=== PATIENT | male | born 1955 | race Caucasian/White ===

== ENCOUNTER 2017-05-28 14:10 | Emergency (ER) | payer BC ==
[2017-05-28] MEDS ORDERED: Aspirin Low Dose CHEW TAB* 81 MG PO ONE ×2 (14:28→14:29)
[2017-05-28 14:47] LABS: Hematocrit 44 % (42-52); Hemoglobin 15.4 g/dl (14.0-18.0); Mean Corpuscular HGB Conc 35 g/dl (31-36); Mean Corpuscular Hemoglobin 33 pg (27-31); Mean Corpuscular Volume 95 fL (80-94); Mean Platelet Volume 8 um3 (7.4-10.4); Red Blood Count 4.61 10^6/ul (4.0-5.4); Red Cell Distribution Width 13 % (10.5-15); White Blood Count 11.1 10^3/ul (3.5-10.8)
--- NOTE | 2017-05-28 14:49 | RAD ---
Indication: Palpitations. Atrial fibrillation. Comparison: April 27, 2015 Technique: Upright AP 1435 hours Report: Clear lungs and pleural spaces. Negative for pneumothorax. The heart, pulmonary vasculature, and mediastinal contours are unremarkable. Unremarkable osseous structures and soft tissue contours. IMPRESSION: No evidence for acute intrathoracic disease.
[2017-05-28 15:04] LABS: Albumin 4.3 g/dL (3.2-5.2); BUN/Creatinine Ratio 20.9 (8-20); Calcium 9.5 mg/dL (8.6-10.3); EGFR African American 86.9 (>60); EGFR Non-African American 67.6 (>60); Globulin 2.9 g/dL (2-4); Total Bilirubin 0.6 mg/dL (0.2-1.0); Total Protein 7.2 g/dL (6.4-8.9)
[2017-05-28 15:29] LABS: TSH (Thyroid Stimulating Horm) 0.75 mcIU/mL (0.34-5.60)
[2017-05-28 18:11] VITALS: BP 150/78
--- NOTE | 2017-05-29 09:08 | ED ---
Zayda Ward Alfonso, scribed for Fabián Warren MD on 05/28/17 at 1519 . Palpitations / Dysrhythmia - HPI Summary HPI Summary: This patient is a 61 year old M presenting to [facility] with a chief complaint of palpitations since a few days ago. The CC is described as fluttering and skipping. The palpitations are intermittent episodes lasting for up to an hour. Pt rates the pain 0/10 in severity. Symptoms aggravated and alleviated by nothing. Pt denies CP, and calf swelling. PMHx of HTN. - History of Current Complaint Chief Complaint: EDChestWallPain Time Seen by Provider: 05/28/17 14:28 Hx Obtained From: Patient Onset/Duration: Sudden Onset, Lasting Days - a few Timing: Intermittent Episodes Lasting: - up to an hour Severity Initially: Mild Severity Currently: Mild Character: Fluttering, Skipped Beats Aggravating: Nothing Alleviating: Nothing - Allergy/Home Medications Allergies/Adverse Reactions: Allergies Allergy/AdvReac Type Severity Reaction Status Date / Time No Known Allergies Allergy Verified 10/24/15 12:12 Home Medications: Home Medications Ledipasvir/Sofosbuvir 90/(NF) [Harvoni 90/400 (NF)] 1 tab PO DAILY 05/28/17 [ History Confirmed 05/28/17] Multivitamins/Minerals TAB* [Theragran/minerals TAB*] 1 tab PO DAILY 05/28/17 [ History Confirmed 05/28/17] PMH/Surg Hx/FS Hx/Imm Hx Endocrine/Hematology History: Denies: Hx Diabetes, Hx Thyroid Disease Cardiovascular History: Reports: Hx Coronary Artery Disease - Cath in 2009, no stent, Hx Hypercholesterolemia, Hx Hypertension - W/MEDS, Other Cardiovascular Problems/Disorders - [place] 2[place]3 [place] [facility] [place] Respiratory History: Denies: Hx Asthma, Hx Chronic Obstructive Pulmonary Disease (COPD) GI History: Denies: Hx Ulcer Musculoskeletal History: Reports: Hx Arthritis Sensory History: Reports: Hx Contacts or Glasses Opthamlomology History: Reports: Hx Contacts or Glasses Psychiatric History: Reports: Hx Anxiety Infectious Disease History: No Infectious Disease History: Reports: Hx Shingles Denies: Hx Hepatitis, Hx Human Immunodeficiency Virus (HIV), Hx of Known/ Suspected MRSA, Hx Tuberculosis, History Other Infectious Disease, Traveled Outside the [place] in Last 30 Days - Family History Known Family History: Positive: Cardiac Disease Family History: Father - of CHF, CVA. Mother - living, CAD with stent placement. Siblings - polyposis. - Social History Alcohol Use: None Hx Substance Use: No Substance Use Type: Reports: None Hx Tobacco Use: Yes Smoking Status (MU): Former Smoker Review of Systems Positive: Palpitations. Negative: Chest Pain Positive: Other - Negative calf swelling. All Other Systems Reviewed And Are Negative: Yes Physical Exam - Summary Physical Exam Summary: VITAL SIGNS: Reviewed. GENERAL: Patient is a well-developed and nourished male who is lying comfortable in the stretcher. Patient is not in any acute respiratory distress. HEAD AND FACE: Normocephalic EYES: PERRLA, EOMI x 2. EARS: Hearing grossly intact. MOUTH: Oropharynx within normal limits. NECK: Supple, trachea is midline, no adenopathy, no JVD, no carotid bruit. CHEST: Symmetric, no tenderness at palpation LUNGS: Clear to auscultation bilaterally. No wheezing or crackles. CVS: Regular rate and rhythm, S1 and S2 present, no murmurs or gallops appreciated. ABDOMEN: Soft, non-tender. Bowel sounds are normal. No abdominal abnormal pulsations. EXTREMITIES: Full ROM in all major joints, no edema, no cyanosis or clubbing. NEURO: Alert and oriented x 3. No acute neurological deficits. Speech is normal and follows commands. SKIN: Dry and warm Triage Information Reviewed: Yes Vital Signs On Initial Exam: Initial Vitals Temp Pulse Resp BP Pulse Ox 98.1 F 72 18 135/68 97 05/28/17 14:17 05/28/17 14:17 05/28/17 14:17 05/28/17 14:17 05/28/17 14:17 Vital Signs Reviewed: Yes - [place] Coma Scale Coma Scale Total: 15 Diagnostics - Vital Signs Vital Signs Temp Pulse Resp BP Pulse Ox 05/28/17 14: 98.1 F 72 18 135/68 97 - Laboratory Lab Results: Lab Results 05/28/17 05/28/17 05/28/17 Range/Units 14:40 14:40 14:40 WBC 11.1 H (3.5-10.8) 10^3/ul RBC 4.61 (4.0-5.4) 10^6/ul Hgb 15.4 (14.0-18.0) g/dl Hct 44 (42-52) % MCV 95 H (80-94) fL MCH 33 H (27-31) pg MCHC 35 (31-36) g/dl RDW 13 (10.5-15) % Plt Count 255 (150-450) 10^3/ul MPV 8 (7.4-10.4) um3 Neut % (Auto) 69.2 (38-83) % Lymph % (Auto) 20.2 L (25-47) % [place] % (Auto) 7.6 (1-9) % Eos % (Auto) 2.3 (0-6) % Baso % (Auto) 0.7 (0-2) % Absolute Neuts (auto) 7.7 (1.5-7.7) 10^3/ul Absolute Lymphs (auto) 2.2 (1.0-4.8) 10^3/ul Absolute Monos (auto) 0.8 (0-0.8) 10^3/ul Absolute Eos (auto) 0.3 (0-0.6) 10^3/ul Absolute Basos (auto) 0.1 (0-0.2) 10^3/ul Absolute Nucleated RBC 0.01 10^3/ul Nucleated RBC % 0.1 Sodium 135 (133-145) mmol/L Potassium Pending Chloride 101 (101-111) mmol/L Carbon Dioxide 27 (22-32) mmol/L Anion Gap Pending BUN 23 (6-24) mg/dL Creatinine 1.10 (0.67-1.17) mg/dL Est GFR ( Amer) 86.9 (>60) Est GFR (Non-Af Amer) 67.6 (>60) BUN/Creatinine Ratio 20.9 H (8-20) Glucose 90 (70-100) mg/dL Lactic Acid 0.9 (0.5-2.0) mmol/L Calcium 9.5 (8.6-10.3) mg/dL Total Bilirubin 0.60 (0.2-1.0) mg/dL AST Pending ALT 12 (7-52) U/L Alkaline Phosphatase 56 (34-104) U/L Total Creatine Kinase 86 (10-223) U/L CK-MB (CK-2) 2.1 (0.6-6.3) ng/mL Troponin I 0.00 (<0.04) ng/mL B-Natriuretic Peptide ( - 100) pg/mL Total Protein 7.2 (6.4-8.9) g/dL Albumin 4.3 (3.2-5.2) g/dL Globulin 2.9 (2-4) g/dL Albumin/Globulin Ratio 1.5 (1-3) TSH Pending 05/28/17 Range/Units 14:40 WBC (3.5-10.8) 10^3/ul RBC (4.0-5.4) 10^6/ul Hgb (14.0-18.0) g/dl Hct (42-52) % MCV (80-94) fL MCH (27-31) pg MCHC (31-36) g/dl RDW (10.5-15) % Plt Count (150-450) 10^3/ul MPV (7.4-10.4) um3 Neut % (Auto) (38-83) % Lymph % (Auto) (25-47) % [place] % (Auto) (1-9) % Eos % (Auto) (0-6) % Baso % (Auto) (0-2) % Absolute Neuts (auto) (1.5-7.7) 10^3/ul Absolute Lymphs (auto) (1.0-4.8) 10^3/ul Absolute Monos (auto) (0-0.8) 10^3/ul Absolute Eos (auto) (0-0.6) 10^3/ul Absolute Basos (auto) (0-0.2) 10^3/ul Absolute Nucleated RBC 10^3/ul Nucleated RBC % Sodium (133-145) mmol/L Potassium Chloride (101-111) mmol/L Carbon Dioxide (22-32) mmol/L Anion Gap BUN (6-24) mg/dL Creatinine (0.67-1.17) mg/dL Est GFR ( Amer) (>60) Est GFR (Non-Af Amer) (>60) BUN/Creatinine Ratio (8-20) Glucose (70-100) mg/dL Lactic Acid (0.5-2.0) mmol/L Calcium (8.6-10.3) mg/dL Total Bilirubin (0.2-1.0) mg/dL AST ALT (7-52) U/L Alkaline Phosphatase (34-104) U/L Total Creatine Kinase (10-223) U/L CK-MB (CK-2) (0.6-6.3) ng/mL Troponin I (<0.04) ng/mL B-Natriuretic Peptide 49 ( - 100) pg/mL Total Protein (6.4-8.9) g/dL Albumin (3.2-5.2) g/dL Globulin (2-4) g/dL Albumin/Globulin Ratio (1-3) TSH Result Diagrams: 05/28/17 14:40 05/28/17 14:40 Lab Statement: Any lab studies that have been ordered have been reviewed, and results considered in the medical decision making process. - Radiology CXR Radiology Interpretation Completed By: Radiologist - No evidence for acute intrathoracic disease. - EKG 1442 Cardiac Rate: NL - BPM 65 EKG Rhythm: Sinus Rhythm Ectopy: PVCs - Multiple Course/Dx - Course Course Of Treatment: This patient is a 61 year old M presenting to [facility] with a chief complaint of palpitations since a few days ago. The CC is described as fluttering and skipping. The palpitations are intermittent episodes lasting for up to an hour. Pt rates the pain 0/10 in severity. Symptoms aggravated and alleviated by nothing. Pt denies CP, and calf swelling. PMHx of HTN. Assessment/Plan: Test results WNL. CXR reveals no acute pathology. EKG reveals SB with PVCs, possibly the reason for his palpitations. The first Troponin and second troponin 4 hours later both are 0.00. Pt continues to be asymptomatic, thus will be discharged home with PCP follow up. He is hemodynamically stable and A&Ox3. I discussed all the findings and test results with the patient. Patient was instructed to return to the emergency room immediately if any of the symptoms return or worsens. Plan of care was discussed with the patient and understands and agrees. All questions were answered at patient satisfaction. There were no further complaints or concerns. Lung exam before discharge: CTA B /L. Good air exchange. No wheezing or crackles heard. CVS: S1 and S2 present. No murmurs appreciated. Patient is alert and oriented x 3. Patient is hemodynamically stable. Patient will be discharged home with follow up PCP in the next 2-3 days - Diagnoses Provider Diagnoses: Atypical chest pain, Palpitations Discharge - Discharge Plan Condition: Stable Disposition: HOME Patient Education Materials: Chest Pain (ED), Palpitations (ED) Referrals: Nico CHAPIN,Yandel Dave [Primary Care Provider] - 2 Days The documentation as recorded by the Zayda valencia Alfonso accurately reflects the service I personally performed and the decisions made by , Fabián Warren MD.
== END 2017-05-28 18:10 | disposition home or self-care (01) ==
LOC: ED 14:10
DX: R07.89 Other chest pain (principal); R00.2 Palpitations; Z87.891 Personal history of nicotine dependence
CPT/HCPCS: 36415; 71010; 80053; 82550; 82553; 83605; 83880; 84443; 84484; 85025; 93005; 99283; A9270-GY

== ENCOUNTER 2018-07-15 10:34 | Emergency (ER) | payer BC, OTHER ==
[2018-07-15 11:01] VITALS: BP 120/74
--- NOTE | 2018-07-15 11:02 | UC ---
Minor Trauma HPI - HPI Summary HPI Summary: patient fell off of a standing lawnmower--fell on to left side pain in left upper arm and wrist, left hip pain---no head injury r loc - History of Current Complaint Chief Complaint: UCTrauma Stated Complaint: ARM INJURY Time Seen by Provider: 07/15/18 10:37 Hx Obtained From: Patient Onset/Duration: Sudden Onset, Still Present Onset Of Pain: Immediate Severity Initially: Moderate Severity Currently: Moderate Mechanism Of Injury: Fall From A Standing Position Aggravating Factor(s): Movement, Other: - palpation Alleviating Factor(s): Nothing - Allergies/Home Medications Allergies/Adverse Reactions: Allergies Allergy/AdvReac Type Severity Reaction Status Date / Time No Known Allergies Allergy Verified 10/24/15 12:12 PMH/Surg Hx/FS Hx/Imm Hx Previously Healthy: No Endocrine History: Dyslipidemia Cardiovascular History: Hypertension Psychological History: Depression - Surgical History Surgical History: None - Family History Known Family History: Positive: None, Cardiac Disease Family History: Father - of CHF, CVA. Mother - living, CAD with stent placement. Siblings - polyposis. - Social History Occupation: Employed Full-time Lives: With Family Alcohol Use: None Substance Use Type: None Smoking Status (MU): Former Smoker - Immunization History Most Recent Influenza Vaccination: None Most Recent Tetanus Shot: 2006 Review of Systems Constitutional: Negative Skin: Negative Eyes: Negative ENT: Negative Respiratory: Negative Cardiovascular: Negative Gastrointestinal: Negative Genitourinary: Negative Motor: Negative Neurovascular: Negative Musculoskeletal: Arthralgia - left upperarm and wrist, left hip Neurological: Negative Psychological: Negative Is Patient Immunocompromised?: No All Other Systems Reviewed And Are Negative: Yes Physical Exam Triage Information Reviewed: Yes Appearance: Well-Appearing, Well-Nourished, Pain Distress - mild Vital Signs Reviewed: Yes Eye Exam: Normal Eyes: Positive: Conjunctiva Clear ENT Exam: Normal ENT: Positive: Normal ENT inspection, Hearing grossly normal. Negative: Nasal congestion, Trismus, Muffled voice, Hoarse voice Dental Exam: Normal Neck exam: Normal Neck: Positive: Supple, Nontender Respiratory Exam: Normal Respiratory: Positive: Chest non-tender, Lungs clear, Normal breath sounds, No respiratory distress, No accessory muscle use Cardiovascular Exam: Normal Cardiovascular: Positive: RRR, No Murmur, Pulses Normal, Brisk Capillary Refill Abdominal Exam: Normal Abdomen Description: Positive: Nontender, No Organomegaly, Soft Musculoskeletal Exam: Normal Musculoskeletal: Positive: Other: - n/m/c intact distal to injuries Neurological Exam: Normal Psychological Exam: Normal Skin Exam: Normal Diagnostics - Radiology No standard instances Xray Interpretation: No Acute Changes Radiology Interpretation Completed By: ED Physician, Radiologist - Patient Name : EVER ONTIVEROS Medical Record#: [id number] Ordering Physician: Bianca Espinosa NP Acct.#: [id number] : 1955 Age: 63 Sex: M Location: [facility] Exam Date: 07/15/18 1056 ADM Status: REG ER Order Information: HIP LEFT 2 VIEWS AND PELVIS Accession Number: [id number] CPT: 33995 Indication: LEFT side hip pain post fall. Comparison: April 03, 2011 CT. Technique: Standing AP pelvis and AP and frog-leg lateral views LEFT hip. Report: The LEFT hip is normally located. No cortical disruption or suspicious trabecular irregularity of the proximal LEFT femur evident to indicate fracture. Preserved LEFT hip joint space without significant arthropathic change. Negative for pelvic fracture or joint diastases. Unremarkable soft tissue contours. IMPRESSION: # . No radiographic evidence for LEFT hip or pelvic fracture. <Electronically signed by Fabián Torres MD in OV> 07/15/18 1155 Dictated By: Fabián Torres MD Dictated Date/ Time: 07/15/18 1155 Transcribed Date/Time: 07/15/18 1149 Copy to: CC:Bianca Espinosa NP; No Primary Care Phys,NOPCP; Julio Aj MD Imaging - [facility] Urgent [facility] [address] [address] ph [phone] ph ) ph ([phone]) This report is only to be considered final once signed by the Provider(s) as displayed in the "<Electronically Signed by >" field (s). Absence of a signature indicates the report is in a draft status and still needs to be finalized. In the event this document was created by someone other than the signing Provider, the individual initiating the document will be listed in the "Entered by:" or "Dictated by:" lazo. 1 of 1 Patient Name: EVER ONTIVEROS Medical Record#: [id number] Ordering Physician: Bianca Espinosa NP Acct.#: [id number] : 1955 Age: 63 Sex: M Location: [facility] Exam Date: 07/15/18 1055 ADM Status: REG ER Order Information: WRIST LEFT 3+ VWS Accession Number: [id number] CPT : 01479 ADDENDUM Scaphoid view obtained. The scaphoid view is negative for fracture at the waist of the scaphoid. On this basis the noted lucency on the routine LEFT wrist views likely represent normal trabecular variation. If there is high index of suspicion for an occult scaphoid fracture repeat exam in 7 - 10 days would be suggested. < Electronically signed by Fabián Torres MD in OV>07/15/18 1253 Dictated by: Fabián Torres MD Dictated Date/Time:07/15/18 125 Transcribed Date/Time: 125 Copy to: Bianca Espinosa NP; No Primary Care Phys,NOPCP; Julio Aj MD INDICATION: Entire LEFT arm pain post fall. COMPARISON: No relevant prior exams available on the [facility] [place]ACS for comparison. TECHNIQUE: AP, lateral, and oblique views LEFT wrist. REPORT: Subtle lucency through the waist of the scaphoid is indeterminate. The differential includes normal trabecular variation as well as a nondisplaced scaphoid fracture. Normal articular alignment. Soft tissue swelling about the distal forearm and wrist. IMPRESSION: #. Potential nondisplaced fracture at the waist of the scaphoid. A dedicated scaphoid view is suggested for further assessment. <Electronically signed by Fabián Torres MD in OV> 07/15/181157 Dictated By: Fabián Torres MD Dictated Date/ Time: 07/15/181157 Transcribed Date/Time: 07/15/181155 Copy to: CC:Bianca Espinosa NP; No Primary Care Phys,NOPCP; Julio Aj MD This report is only to be considered final once signed by the Provider(s) as displayed in the "<Electronically Signed by >" field (s). Absence of a signature indicates the report is in a draft status and still needs to be finalized. In the event this document was created by someone other than the signing Provider, the individual initiating the document will be listed in the "Entered by:" or "Dictated by:" lazo. 1 of 2 Patient Name: EVER ONTIVEROS Medical Record#: [id number] Ordering Physician: Bianca Espinosa NP Acct.#: [id number] : 1955 Age: 63 Sex: M Location: [facility] Exam Date: 07/15/18 105 ADM Status: REG ER Order Information: HUMERUS LEFT Accession Number: [id number] CPT: 17552 Indication: Entire LEFT arm pain post fall. Comparison : No relevant prior exams available on the [facility] PACS for comparison. Technique: AP and lateral views LEFT humerus. REPORT AND IMPRESSION: #. Negative for LEFT humerus fracture or articular malalignment. #. Incidental note of calcific tendinopathy of the rotator cuff at the greater tuberosity insertion. #. Unremarkable soft tissue contours. <Electronically signed by Fabián Torres MD in OV> 07/15 Dictated By: Fabián Torres MD Dictated Date/Time: 07/15/181155 Transcribed Date/Time: 07/15/181154 Copy to: CC:Bianca Espinosa NP; No Primary Care Phys,NOPCP; Julio Aj MD Imaging - [facility] Urgent [facility] [id number] [place] [address] ph ([phone]) ph ([phone]) ph ([phone]) This report is only to be considered final once signed by the Provider(s) as displayed in the "<Electronically Signed by >" field (s). Absence of a signature indicates the report is in a draft status and still needs to be finalized. In the event this document was created by someone other than the signing Provider, the individual initiating the document will be listed in the "Entered by:" or "Dictated by:" lazo. 1 of 1 Minor Trauma Course/Dx - Course Course Of Treatment: rest ice, sling prn, follow with pcp or ortho if symptoms continue---ibuprofen for pain - Differential Dx/Diagnosis Provider Diagnoses: left wrist, hip and upper arm contusion Discharge - Sign-Out/Discharge Documenting (check all that apply): Patient Departure All imaging exams completed and their final reports reviewed: Yes - Discharge Plan Condition: Stable Disposition: HOME Patient Education Materials: Contusion in Adults (ED), R.I.C.E. Treatment (ED) Forms: *Work Release Referrals: Julian Alegre MD [Medical Doctor] - If Needed - Billing Disposition and Condition Condition: STABLE Disposition: Home
--- NOTE | 2018-07-15 11:58 | RAD ---
Indication: LEFT side hip pain post fall. Comparison: April 03, 2011 CT. Technique: Standing AP pelvis and AP and frog-leg lateral views LEFT hip. Report: The LEFT hip is normally located. No cortical disruption or suspicious trabecular irregularity of the proximal LEFT femur evident to indicate fracture. Preserved LEFT hip joint space without significant arthropathic change. Negative for pelvic fracture or joint diastases. Unremarkable soft tissue contours. IMPRESSION: #. No radiographic evidence for LEFT hip or pelvic fracture.
--- NOTE | 2018-07-15 11:59 | RAD ---
Indication: Entire LEFT arm pain post fall. Comparison: No relevant prior exams available on the [facility] PACS for comparison. Technique: AP and lateral views LEFT humerus. REPORT AND IMPRESSION: #. Negative for LEFT humerus fracture or articular malalignment. #. Incidental note of calcific tendinopathy of the rotator cuff at the greater tuberosity insertion. #. Unremarkable soft tissue contours.
--- NOTE | 2018-07-15 12:01 | RAD ---
INDICATION: Entire LEFT arm pain post fall. COMPARISON: No relevant prior exams available on the [facility] PACS for comparison. TECHNIQUE: AP, lateral, and oblique views LEFT wrist. REPORT: Subtle lucency through the waist of the scaphoid is indeterminate. The differential includes normal trabecular variation as well as a nondisplaced scaphoid fracture. Normal articular alignment. Soft tissue swelling about the distal forearm and wrist. IMPRESSION: #. Potential nondisplaced fracture at the waist of the scaphoid. A dedicated scaphoid view is suggested for further assessment.
== END 2018-07-15 13:05 | disposition home or self-care (01) ==
LOC: UCEAST 10:34
DX: S40.022A Contusion of left upper arm, initial encounter (principal); S60.212A Contusion of left wrist, initial encounter; S70.02XA Contusion of left hip, initial encounter; Z87.891 Personal history of nicotine dependence; I10 Essential (primary) hypertension; W31.89XA Contact with other specified machinery, initial encounter; Y92.9 Unspecified place or not applicable
CPT/HCPCS: 99212; G0463